=== PATIENT | female | born 1945 | race Caucasian/White ===

== ENCOUNTER → 2021-02-16 | Outpatient (CLI) | payer MEDICARE ==
--- NOTE | 2021-02-16 16:49 | RAD ---
EXAM: Chest and bilateral ribs, 6 views. HISTORY: Pain. Fall. COMPARISON: None. FINDINGS: Frontal views of the chest and oblique views of the ribs are obtained. There is no infiltra te, pleural effusion or pneumothorax. The heart is normal in size. No acute displaced rib fracture is seen. IMPRESSION: No acute pulmonary or osseous finding. Electronically signed by: Malini Jaime MD (02/16/2021 4:47 PM) [id number]
== END ==
LOC: RAD 16:09
PROVIDERS: ATTEND Nurse Practitioner Family
DX: R07.81 Pleurodynia (principal); Z91.81 History of falling
CPT/HCPCS: 71111